=== PATIENT | male | born 1990 ===

== ENCOUNTER 2022-10-17 05:31 | Day surgery (SDC) | payer OTHER ==
[~2022-10-17] VITALS: Ht 177.8 cm; Wt 113.4 kg
[2022-10-17] MEDS ORDERED: CEPHALEXIN500 MG PO ×2 (08:56→10:02)
== END 2022-10-17 11:10 | disposition home or self-care (01) ==
LOC: CIR.AMB 05:31
PROVIDERS: ATTEND Otolaryngology Otology & Neurotology
DX: H80.82 Other otosclerosis, left ear (principal); H90.12 Conductive hearing loss, unilateral, left ear, with unrestricted hearing on the contralateral side; H74.12 Adhesive left middle ear disease; Z20.822 Contact with and (suspected) exposure to COVID-19